=== PATIENT | male | born 1950 | race Caucasian/White ===

== ENCOUNTER 2018-10-25 04:10 | Inpatient (IN) ==
--- NOTE | 2018-10-20 17:26 | EKG Report ---
Test Performed on : 10/20/2018 5:13:05 PM Test Reason : PAT Blood Pressure : / mmHG Vent. Rate : 085 BPM Atrial Rate : 085 BPM P-R Int : 130 ms QRS Dur : 106 ms QT Int : 372 ms P-R-T Axes : 073 -17 091 degrees QTc Int : 442 ms Normal sinus rhythm. Nonspecific ST and T wave abnormality Abnormal ECG When compared with ECG of 14-OCT-2017 07:40, premature ventricular complexes. are no longer present Unconfirmed Result
[2018-10-20 17:37] LABS: URINE SOURCE CLEAN CATCH
[2018-10-20 17:46] LABS: BASO# 0.06 X1000 (0.0-0.2); BASO% 0.6 % (0.0-0.8); EOS# 0.18 X1000 (0.0-0.7); EOS% 1.8 % (0.0-10.0); HEMATOCRIT 47.6 % (42.0-52.0); HEMOGLOBIN 15.6 g/dL (14.0-18.0); IMM GRAN# 0.06 X1000 (0.0-0.04); IMM GRAN% 0.6 % (0.0-0.5); LYMPH# 1.95 X1000 (1.2-3.4); LYMPH% 19.8 % (20.5-51.1); MCH 30.5 PG (27-31); MCHC 32.8 g/dL (33-37); MCV 93.2 FL (81-99); MONO# 0.61 X1000 (0.11-0.59); MONO% 6.2 % (1.7-9.3); MPV 11.2 FL (7.4-10.4); NEUT# 6.99 X1000 (1.4-6.5); PLT 257 X1000 (130-400); RBC 5.11 XMIL (4.7-6.1); RDW 14.2 % (11.5-14.5); WBC 9.85 X1000 (4.8-10.8)
[2018-10-20 17:47] LABS: INR 0.89; PROTIME 12.8 Seconds (11.0-16.0)
[2018-10-20 17:48] LABS: PTT 32.5 Seconds (22.3-41.8)
[2018-10-20 17:55] LABS: HEMOGLOBIN A1C 5.7 % (4.8-6.0)
[2018-10-20 18:01] LABS: AGAP 11; BUN 22 mg/dL (8-22); CALCIUM 10.1 mg/dL (8.8-10.2); CHLORIDE 104 mmol/L (98-107); COSMO 288; CREATININE 1.1 mg/dL (0.7-1.2); ESTIMATED GFR > 60; GLUCOSE 125 mg/dL (70-104); POTASSIUM 4.6 mmol/L (3.5-5.1); SODIUM 142 mmol/L (136-145); TCO2 27 mmol/L (25-35)
[2018-10-20 18:02] LABS: BILIRUBIN URINE NEGATIVE (NEGATIVE); BLOOD URINE NEGATIVE (NEGATIVE); COLOR YELLOW; GLUCOSE URINE NEGATIVE (NEGATIVE); KETONE URINE NEGATIVE (NEGATIVE); LEUKOCYTES URINE NEGATIVE (NEGATIVE); NITRITE URINE NEGATIVE (NEGATIVE); PH URINE 5.5; PROTEIN URINE NEGATIVE (NEGATIVE); SP GRAVITY URINE 1.021; TURBIDITY URINE CLEAR (CLEAR); UROBILINOGEN URINE NORMAL (NORMAL)
[2018-10-20 18:06] LABS: UR EPITHELIAL CELLS <10 /HPF (<10); URINE BACTERIA NEGATIVE /HPF; URINE RBC <10 /HPF (<10); URINE WBC <10 /HPF (<10)
[2018-10-25] MEDS ORDERED: COLACE ONE (07:36)
[2018-10-25] MEDS ORDERED: REGLAN ONE (07:36)
[2018-10-25] MEDS ORDERED: PEPCID ONE (07:36)
[2018-10-25] MEDS ORDERED: CELEBREX ONE (07:37)
[2018-10-25] MEDS ORDERED: KEFZOL 2 GM/D5W 2 GM/50 ML IVPB ONE (07:37)
[2018-10-25] MEDS ORDERED: LR 1,000 ML ONE (07:37)
[2018-10-25] MEDS ORDERED: LYRICA ONE (07:37)
[2018-10-25] MEDS ORDERED: DIPRIVAN 1% 500 MG/50 ML BOTTLE ONE (08:33)
[2018-10-25] MEDS ORDERED: DURAMORPH ONE (08:38)
[2018-10-25] MEDS ORDERED: SODIUM CHLORIDE 0.9% ONE (08:38)
[2018-10-25] MEDS ORDERED: SENSORCAINE-MPF 0.5%/EPI 1:200,000 ONE (08:38)
[2018-10-25] MEDS ORDERED: CYKLOKAPRON 1,000 MG/NS 1,000 MG/100 ML IVPB ONE ×2 (08:38→08:40)
[2018-10-25] MEDS ORDERED: TORADOL ONE (08:38)
[2018-10-25] MEDS ORDERED: VANCOMYCIN ONE (08:38)
[2018-10-25] MEDS ORDERED: NEOSPORIN G.U. IRRIGANT ONE (08:39)
[2018-10-25] MEDS ORDERED: EXPAREL 1.3% ONE (08:39)
[2018-10-25] MEDS ORDERED: FENTANYL ONE (09:16)
[2018-10-25] MEDS ORDERED: VERSED ONE (09:31)
[2018-10-25] MEDS ORDERED: DIPRIVAN 1% ONE ×2 (10:09→11:05)
[2018-10-25] MEDS ORDERED: XYLOCAINE-MPF 2% ONE (10:11)
[2018-10-25] MEDS ORDERED: OFIRMEV 1000 MG/ISOTONIC SOLN 1,000 MG/100 ML BOTTLE ONE (11:36)
[2018-10-25 12:23] LABS: URINE SOURCE CATH
[2018-10-25 12:25] LABS: BILIRUBIN URINE NEGATIVE (NEGATIVE); BLOOD URINE NEGATIVE (NEGATIVE); COLOR YELLOW; GLUCOSE URINE NEGATIVE (NEGATIVE); KETONE URINE NEGATIVE (NEGATIVE); LEUKOCYTES URINE NEGATIVE (NEGATIVE); NITRITE URINE NEGATIVE (NEGATIVE); PROTEIN URINE NEGATIVE (NEGATIVE); TURBIDITY URINE CLEAR (CLEAR); UR EPITHELIAL CELLS <10 /HPF (<10); URINE BACTERIA NEGATIVE /HPF; URINE RBC <10 /HPF (<10); URINE WBC <10 /HPF (<10); UROBILINOGEN URINE NORMAL (NORMAL)
--- NOTE | 2018-10-25 12:33 | OPERATIVE NOTE ---
PROCEDURE DATE: 10/25/2018 PREOPERATIVE DIAGNOSIS: Right knee degenerative joint disease. POSTOPERATIVE DIAGNOSIS: Right knee degenerative joint disease. PROCEDURE PERFORMED: Right total knee arthroplasty using [facility] size 7 femoral component, size 8 tibial base plate, a 19 mm articular insert, and 38 mm patellar component. ANESTHESIA: Spinal. SURGEON: Juwan Cadena MD. CLINICAL ENGINEER: GIANFRANCO Oliveros. COMPLICATIONS: None. ESTIMATED BLOOD LOSS: Minimal. TOURNIQUET TIME: Approximately an hour half. DRAINS: Hemovac x1. DESCRIPTION OF PROCEDURE: The patient was brought to the operative suite and placed in supine position. After successful administration of general anesthesia, a well-padded tourniquet was placed on the right proximal thigh. Right lower extremity was prepped and draped in usual sterile fashion. Leg was exsanguinated. Tourniquet was insufflated to 350 torr. A longitudinal incision was made at the superior pole of the patella and extended distally. Tibia tuberosity dissected sharply through skin. Full-thickness skin flaps were elevated medially and laterally. A medial arthrotomy was made and then the medial capsule was elevated off the medial tibial plateau. The ACL, PCL, medial meniscus, and lateral meniscus were excised. A drill was entered at the center of the distal femur. Intramedullary guide was placed. Distal cutting block was pinned in place. Distal cut was made with oscillating saw. The marginal osteophytes were removed with rongeur. Attention was directed to the tibia. A drill was entered in the center of the tibia. Intramedullary guide was placed. The line was checked with drop finesse referencing off the anterior cortex of the tibia and the second ray of the foot and taking 4 mm off the low side of the tibia which in this case was moved medially. The tibial cutting block was pinned into place. The articular surface of the tibial plateau was removed with oscillating saw. The extension gap was checked and balanced at 19 mm. Therefore, using the gap balancing technique, the knee was flexed to 90 degrees and with the gap balancing guide set to 28 mm allowing 9 mm for the thickness of the implant of the posterior condyles of the femur and sizing for the femur was sized to a size 7. The size 7 cutting block was pinned in place. Anterior cuts, chamfer cuts, and posterior condylar cuts were made with the oscillating saw. Marginal osteophytes were again removed with a rongeur. Marginal osteophytes of the tibia had already been removed as well. The cutting block was pinned into place. Box cut was made a box osteotome and oscillating saw. Posterior condyle osteophytes were removed the curved osteotome and rongeur. The attention was then directed to the tibia. The tibia was sized to a size 8. A size 8 guide was used for the fin punch. Then the tibial trial, femoral trial and 19 mm articular insert were placed and taken through a range of motion and found have excellent alignment, balancing, and range of motion. Attention was directed to the patella. Then 9 mm of the articular surface of patella were removed with oscillating saw. Patella was sized to a size 38. A size 38 guide was used to drill peg holes. Lateral facet was chamfered 30 to 45 degrees. Patella trial was placed taken through range of motion and found have excellent patella tracking. All trials were then removed. The knee was copiously irrigated and dried, being certain all bone debris was removed. The tibial component, femoral component, and patellar component were cemented into place, excess cement being removed with a [place]. Once the cement hardened, excess cement was again removed with an osteotome. The knee was again copiously irrigated and dried, being certain all bone and cement debris was removed. The trial articular insert was removed. The tourniquet was deflated. Hemostasis was obtained with electrocautery. The knee was copiously infiltrated with Exparel, including posterior capsule, anterior capsule, anterior musculature, and subcutaneous tissue. The knee was copiously irrigated with normal saline containing irrigant and Vashe irrigation. A drain was placed exiting superior laterally and buried in the lateral gutter. The definitive 19 mm articular insert was locked into place and the knee was again taken through range of motion and again found have excellent alignment, balancing, range of motion, patellar tracking. The medial arthrotomy was closed with 0 V-Loc suture. Skin edge was approximated with 2-0 Vicryl. Skin was closed with Prineo and a sterile dressing was applied. The patient tolerated the procedure well without complication. At the end of the procedure, all counts correct x2. The patient was transferred to the recovery room in stable condition. cc: Juwan Cadena MD
[2018-10-25] MEDS ORDERED: DILAUDID ONE (12:36)
[2018-10-25] MEDS ORDERED: NS 1,000 ML ONE (12:44)
[2018-10-25] MEDS ORDERED: MORPHINE IV PRN (13:15)
[2018-10-25] MEDS ORDERED: OXY IR PO PRN (13:15)
[2018-10-25] MEDS ORDERED: MILK OF MAGNESIA PO PRN (13:15)
[2018-10-25] MEDS ORDERED: ZOFRAN IV PRN (13:15)
[2018-10-25] MEDS: NS 1,000 ML IV SCH (13:47)
[2018-10-25] MEDS: ULTRAM PO SCH ×2 (13:59→20:15)
[2018-10-25] MEDS: TYLENOL PO SCH (17:16)
[2018-10-25] MEDS: KEFZOL 2 GM/D5W 2 GM/50 ML IVPB IV SCH (17:17)
[2018-10-25] MEDS: COLACE PO SCH (20:14)
[2018-10-25] MEDS: CELEBREX PO SCH (20:14)
[2018-10-25] MEDS: LYRICA PO SCH (20:16)
--- NOTE | 2018-10-25 20:49 | OPERATIVE NOTE ---
DATE: 10/25/2018 INDICATION: Called to the operating room to assist in placement of urethral catheter for patient Christian Queen. The patient was undergoing a right arthroplasty by Dr. Cadena. Patient has a history of being followed by Dr. Morgan for elevated PSA and urethral stricture disease. Nursing had attempted to place a catheter at the start of the case, however, had difficulty after meeting resistance on placement. Urology was notified for placement of the catheter at the end of the procedure. PROCEDURE: The patient was evaluated after completion of orthopedic procedure. The patient had normal phallus, bilateral testicles palpated without masses or nodularity. There was some fluid collection around his right testicle. It appeared to be hydrocele. Nursing had previously attempted a 16-[place]oz[place] Garcia catheter. I obtained a 14-[place] silicone catheter, was able to pass easily through the urethra with slight narrowing within the bulbar urethra, but it passed easily into the bladder with return of clear yellow urine. It was inflated with 10 mL of sterile water and placed to gravity drainage. Would recommend keeping catheter in for normal postop course after right knee arthroplasty. If the patient has difficulty with catheterization, would consult Urology air pollution inspector. Likely can follow up with Dr. Morgan in outpatient setting with normal scheduled followup. It appears that he had a PSA check on 06/30/2018. Please call with questions or concerns. cc: MD Juwan Benedict MD [facility]
[2018-10-26] MEDS: KEFZOL 2 GM/D5W 2 GM/50 ML IVPB IV SCH (00:47)
[2018-10-26] MEDS: ULTRAM PO SCH ×3 (00:47→12:59)
[2018-10-26] MEDS: TYLENOL PO SCH ×3 (00:48→13:00)
[2018-10-26] MEDS: NS 1,000 ML IV SCH ×2 (00:48→04:09)
[2018-10-26 06:18] LABS: HEMATOCRIT 44.6 % (42.0-52.0); HEMOGLOBIN 14.4 g/dL (14.0-18.0)
[2018-10-26 06:43] LABS: AGAP 11; BUN 17 mg/dL (8-22); CHLORIDE 104 mmol/L (98-107); COSMO 284; CREATININE 1.1 mg/dL (0.7-1.2); ESTIMATED GFR > 60; GLUCOSE 147 mg/dL (70-104); POTASSIUM 4.8 mmol/L (3.5-5.1); SODIUM 140 mmol/L (136-145); TCO2 25 mmol/L (25-35)
[2018-10-26] MEDS: OXY IR PO PRN ×2 (07:33→12:59)
[2018-10-26] MEDS ORDERED: ASPIRIN PO SCH (09:00)
[2018-10-26] MEDS ORDERED: DECADRON IV ONE (09:00)
[2018-10-26] MEDS ORDERED: NORVASC PO SCH (09:00)
[2018-10-26] MEDS ORDERED: COZAAR PO SCH (09:00)
[2018-10-26] MEDS ORDERED: PERIDEX MT SCH (09:00)
[2018-10-26] MEDS ORDERED: PEPCID PO SCH (09:00)
--- NOTE | 2018-10-26 09:10 | DISCHARGE SUMMARY ---
ADMISSION DATE: 10/25/2018 DISCHARGE DATE: 10/26/2018 DISCHARGE DIAGNOSIS: Right knee degenerative joint disease, status post right total knee arthroplasty. DISCHARGE MEDICATIONS: See discharge medication list. DISPOSITION: The patient is discharged home with home health. DISCHARGE INSTRUCTIONS: Instructions for total knee arthroplasty protocol and instructed to return to see Dr. Cadena next . HOSPITAL COURSE: On the day of admission, patient underwent a right total knee arthroplasty. His postoperative course was unremarkable. At discharge, he is afebrile, tolerating a regular diet and ambulating well with physical therapy. At discharge, hemoglobin is 14.4 and his hematocrit is 44.8. He has had 150 mL of drainage from his Hemovac drain which we will discontinue once the patient is discharged. His right knee dressing is clean, dry, and intact. His right calf is soft. His right leg is neurovascularly intact. He is discharged home in stable condition with instructions to follow up as described above. Dictated by GIANFRANCO Giles for Juwan Cadena MD cc: GIANFRANCO Giles MD
[2018-10-26] MEDS: COLACE PO SCH (09:24)
[2018-10-26] MEDS: CELEBREX PO SCH (09:24)
[2018-10-26] MEDS: LYRICA PO SCH (09:24)
[2018-10-26 11:13] VITALS: BP 152/62
== END 2018-10-26 14:43 | disposition home health service (06) | DRG 470 ==
LOC: SURHOLD 04:10 → EDSTATUS 07:30 → 4N 10:00
PROVIDERS: ADMIT Orthopaedic Surgery; ATTEND Orthopaedic Surgery
CPT/HCPCS: 80048; 81001; 82040; 83036; 85014; 85018; 85025; 85610; 85730; 86850; 86900; 86901; 88305; 88311; 93005; 93010; 94761; 94799; 97110; 97116; 97162; 97530; A9270; C9290; J0131; J0690; J1170; J1885; J2250; J2270; J2274; J2275; J3010; J3370; J7030; J7120; Q9974